=== PATIENT | female | born 1990 | race Caucasian/White ===

== ENCOUNTER 2017-05-07 17:12 | Emergency (ER) | payer SELFPAY ==
[~2017-05-07 17:12] MED LIST: Sodium Chloride 0.9% 1,000 ML BAG ONE; Sterile Water 10 ML VIAL ONE
[2017-05-07] MEDS ORDERED: Lorazepam 2 MG/ML VIAL ONE (17:33)
[2017-05-07 17:48] LABS: PTT 28.4 SEC (22.9-36.1); Prothrombin Time 13.3 SEC (12.0-14.7)
[2017-05-07 18:02] LABS: ALT (SGPT) 39 U/L (8-55); AST (SGOT) 34 U/L (5-34); Albumin 5.1 g/dL (3.5-5.0); Alkaline Phosphatase 49 U/L (40-150); Anion Gap 21 mmol/L (10-20); BUN (Urea Nitrogen) 16 mg/dL (7.0-18.7); Bilirubin, Total 1.9 mg/dL (0.2-1.2); CK (CPK) 830 U/L (29-168); Calc. Creatinine Clearance 0 mL/min (70-130); Calcium 10.6 mg/dL (7.8-10.44); Carbon Dioxide 17 mmol/L (22-29); Chloride 101 mmol/L (98-107); Estimated GFR-MDRD 45; Globulin 3.4 g/dL (2.4-3.5); Glucose 108 mg/dL (70-105); Potassium 3.7 mmol/L (3.5-5.1); Protein, Total 8.5 g/dL (6.0-8.3); Sodium 135 mmol/L (136-145)
[2017-05-07 18:03] LABS: Acetaminophen Less than 6.0 mcg/mL (10.0-30.0); Alcohol Less than 10 mg/dL (Less than 10); Salicylate Less than 8.0 mg/dL (15.0-30.0)
[2017-05-07] MEDS ORDERED: Ketorolac Tromethamine 30 MG/ML VIAL ONE (18:03)
[2017-05-07] MEDS ORDERED: Ondansetron HCl/PF 4 MG/2 ML Vial ONE (18:03)
[2017-05-07 18:13] LABS: Hemoglobin 16.4 g/dL (12.0-16.0); Large Platelets SLIGHT; Lymphocytes 11 % (21-51); MDiff Complete? YES; Mean Corpuscular HGB CONC 34.5 g/dL (32.0-36.0); Mean Corpuscular Hemoglobin 30.4 pg (27.0-31.0); Mean Corpuscular Volume 88.2 fl (81.0-99.0); Mean Platelet Volume 11.4 fL (7.4-10.4); Monocytes 4 % (0-10); Neutrophil 74 % (42-75); PLT Morphology Comment Appears Adequate; Platelet Count 308 thou/uL (130-400); Reactive Lymphocytes 11 % (0-10); Red Blood Cell (RBC) Count 5.39 mill/uL (4.20-5.40); White Blood Cell (WBC) Count 21.8 thou/uL (4.8-10.8)
[2017-05-07 18:23] LABS: Troponin I 0.314 ng/mL (< 0.028)
[2017-05-07 18:26] LABS: CKMB 8.9 ng/mL (0-6.6)
--- NOTE | 2017-05-07 18:29 | RAD ---
SINGLE VIEW OF THE CHEST: Comparison: None. History: Altered mental status. FINDINGS: Single view of the chest shows a normal sized cardiomediastinal silhouette. There is air in the neck . There also appears to be paracardial air with likely air in the mediastinum. No obvious pneumothor ax is appreciated. No free air is seen beneath the diaphragm. IMPRESSION: Nonspecific air in the neck and pericardium. This could be secondary to a ruptured pulmonary bleb wi thout pneumothorax. This could also be secondary to an esophageal rupture. Correlate with history. POS: [facility]
[2017-05-07] MEDS ORDERED: Ziprasidone 20 MG VIAL ONE (18:51)
== END 2017-05-07 19:43 | disposition short-term general hospital (02) ==
LOC: MADERS 17:12
DX: I20.0 Unstable angina (principal); F43.0 Acute stress reaction; I50.9 Heart failure, unspecified; F45.8 Other somatoform disorders; F19.10 Other psychoactive substance abuse, uncomplicated; F17.210 Nicotine dependence, cigarettes, uncomplicated
CPT/HCPCS: 71010; 80053; 80307; 82553; 83880; 84443; 84484; 85025; 85610; 85730; 93005; 94760; 96372; 96374; 96375; 96376; A4216; J1885; J2060; J2405; J3486; J7050